=== PATIENT | male | born 1970 | race African-American/Black ===

== ENCOUNTER 2022-02-09 23:38 | Inpatient (IN) | payer BC ==
[~2022-02-09] VITALS: Ht 188 cm; Wt 81.6 kg
[2022-02-09] MEDS ORDERED: PROPOFOL 100 ML ONE (23:43)
[2022-02-09] MEDS ORDERED: LORAZEPAM INJ 2 MG/ML VIAL ONE (23:51)
[2022-02-09] MEDS ORDERED: diphenhydrAMINE HCL 50 MG/ML VIAL ONE (23:51)
[2022-02-09] MEDS ORDERED: methylPREDNISolone SOD SUCC 125 MG/2ML VIAL ONE (23:54)
[2022-02-10] VITALS (30 sets, daily range): BP systolic 90–170; BP diastolic 62–135
[2022-02-10] MEDS ORDERED: methylPREDNISolone SOD SUCC 125 MG/2ML VIAL IV ONE
[2022-02-10] MEDS ORDERED: ROCURONIUM BROMIDE 100 MG/10 ML VIAL IV ONE
[2022-02-10] MEDS ORDERED: IV NS 0.9% 500 ML BAG IV ONE
[2022-02-10] MEDS ORDERED: PIPERACILLIN /TAZOBACTAM 3.375 G in IV D5W 50 ML IV ONE ×2
[2022-02-10] MEDS ORDERED: VANCOMYCIN 1 GM in IV D5W 250 ML IV ONE ×2
[2022-02-10] MEDS ORDERED: VANCOMYCIN 1 GM VIAL ONE (00:07)
[2022-02-10] MEDS ORDERED: PIPERACILLIN /TAZOBACTAM 3.375 G VIAL IV ONE ×2 (00:07→06:20)
[2022-02-10 00:08] LABS: BASOPHILS # (AUTO) 0.1 K/uL (0.0-0.2); BASOPHILS % (AUTO) 0.5 % (0.0-2.0); EOSINOPHILS % (AUTO) 0.7 % (0.0-6.0); HEMATOCRIT 43 % (39-51); HEMOGLOBIN 13.7 g/dL (13.5-17.5); LYMPHOCYTES % (AUTO) 15.5 % (20.0-44.0); MEAN CORPUSCULAR HGB CONC 32 g/dl (31.0-36.0); MEAN CORPUSCULAR VOLUME 91 fL (80-96); MONOCYTES # (AUTO) 0.5 K/uL (0.1-1.30); MONOCYTES % (AUTO) 3.9 % (2.0-12.0); NEUTROPHILS # (AUTO) 10.1 K/uL (1.8-8.9); NEUTROPHILS % (AUTO) 79.4 % (43.0-81.0); PLATELET COUNT (AUTO) 246 K/uL (150-450); RED BLOOD CELL COUNT(AUTO) 4.69 MIL/uL (4.5-6.0); WHITE BLOOD COUNT (AUTO) 12.7 K/uL (4.3-11.0)
[2022-02-10 00:30] LABS: CALCIUM, SERUM 8.6 mg/dL (8.5-10.1); CARBON DIOXIDE 28 mmol/L (21-32); CHLORIDE 101 mmol/L (98-107); GLUCOSE 248 mg/dL (74-106); POTASSIUM 4.3 mmol/L (3.5-5.1); SODIUM SERUM 139 mmol/L (136-145); UREA NITROGEN, BLOOD 29 mg/dL (7-18)
[2022-02-10 00:44] LABS: ALANINE AMINOTRANSFERASE 68 U/L (12-78); ALBUMIN 4.2 g/dL (3.4-5.0); ALKALINE PHOSPHATASE 63 U/L (46-116); ASPARTATE AMINOTRANSFERASE 74 U/L (15-37); BILIRUBIN,DIRECT 0.1 mg/dL (0.0-0.2); BILIRUBIN,TOTAL 0.5 mg/dL (0.2-1.0); TOTAL PROTEIN, SERUM 7.5 g/dL (6.4-8.2)
[2022-02-10] MEDS ORDERED: FLUO10TA PO (01:26)
[2022-02-10] MEDS ORDERED: LISI10TA29 PO (01:26)
[2022-02-10] MEDS ORDERED: BUPR-54 PO (01:26)
[2022-02-10] MEDS ORDERED: ANAS1TAB50 PO (01:26)
[2022-02-10] MEDS ORDERED: PROPOFOL 100 ML ONE (01:29)
[2022-02-10 02:00] LABS: BILIRUBIN,URINE NEGATIVE (NEGATIVE); COLOR,URINE YELLOW (YELLOW); LEUKOCYTE ESTERASE ,URINE NEGATIVE (NEGATIVE); NITRITE, URINE NEGATIVE (NEGATIVE); PROTEIN,URINE 100 mg/dl (NEGATIVE); UGLUCOSE 250 MG/DL mg/dL (NEGATIVE); UROBILINOGEN,URINE 0.2 EU/dL (0.2)
[2022-02-10 02:03] LABS: ABG BASE EXCESS -1.9 mmol/L; ABG PCO2 58.3 mmHg (35.0-45.0); ABG PH 7.269 (7.350-7.450); ABG PO2 59.7 mmHg (75.0-100.0); COHb 0.4 % (0.5-1.5); MetHb 0.1 % (0.0-1.5); O2Hb 85.5 % (94.0-97.0); PEEP,BG 5 cm H2O; SITE, ABG Left Radial; VENT MODE, BG AC 22 500 100% +5; VT, ABG 500 mL
[2022-02-10] MEDS ORDERED: SODIUM BICARBONATE SYR 50 MEQ/50 ML DISP.SYRIN ONE (02:10)
[2022-02-10 02:23] LABS: BACTERIA,URINE Few /HPF (None Seen); SQUAMOUS EPITHELIAL CELL,UR Moderate /HPF (None Seen)
[2022-02-10] MEDS ORDERED: SODIUM BICARBONATE SYR 50 MEQ/50 ML DISP.SYRIN IV ONE ×2 (02:30)
[2022-02-10] MEDS ORDERED: ACETAMINOPHEN 650 MG/SUPP.RECT RC PRN (03:30)
[2022-02-10] MEDS ORDERED: Z GUARD REMEDY 4 OZ OINT TP PRN (03:30)
[2022-02-10] MEDS ORDERED: ONDANSETRON HCL/PF 4 MG/2 ML VIAL IVP PRN (03:30)
[2022-02-10] MEDS: IV D5/0.45 NACL 1,000 ML IV PRN ×2 (03:56→14:46)
[2022-02-10] MEDS: PROPOFOL 100 ML IV PRN ×8 (03:58→23:46)
[2022-02-10 05:03] LABS: BASOPHILS % (AUTO) 0.2 % (0.0-2.0); EOSINOPHILS % (AUTO) 0.1 % (0.0-6.0); HEMATOCRIT 42 % (39-51); HEMOGLOBIN 14.2 g/dL (13.5-17.5); LYMPHOCYTES # (AUTO) 0.3 K/uL (0.8-4.8); LYMPHOCYTES % (AUTO) 6.1 % (20.0-44.0); MEAN CORPUSCULAR HGB CONC 34 g/dl (31.0-36.0); MEAN CORPUSCULAR VOLUME 89 fL (80-96); MONOCYTES # (AUTO) 0.2 K/uL (0.1-1.30); MONOCYTES % (AUTO) 4.1 % (2.0-12.0); NEUTROPHILS % (AUTO) 89.5 % (43.0-81.0); PLATELET COUNT (AUTO) 191 K/uL (150-450); RED BLOOD CELL COUNT(AUTO) 4.75 MIL/uL (4.5-6.0); WHITE BLOOD COUNT (AUTO) 5.6 K/uL (4.3-11.0)
[2022-02-10 05:17] LABS: CALCIUM, SERUM 8.4 mg/dL (8.5-10.1); CREATININE 1.5 mg/dL (0.6-1.3)
[2022-02-10 05:31] LABS: ALBUMIN 3.6 g/dL (3.4-5.0); BILIRUBIN,TOTAL 0.7 mg/dL (0.2-1.0); MAGNESIUM 2.3 mg/dL (1.8-2.4); TOTAL PROTEIN, SERUM 6.7 g/dL (6.4-8.2)
[2022-02-10] MEDS ORDERED: ZOSYN IVPB 3.375 G in IV D5W 50ml IV ONE (06:00)
[2022-02-10 08:01] LABS: ABG BASE EXCESS 0.8 mmol/L; ABG OXYGEN SATURATION 98.5 % (92.0-98.5); ABG PCO2 45.6 mmHg (35.0-45.0); ABG PO2 151.5 mmHg (75.0-100.0); AaDO2 515.9 mmHg; COHb 0.8 % (0.5-1.5); MetHb 0.3 % (0.0-1.5); O2Hb 97.4 % (94.0-97.0); PEEP,BG 5 cm H2O; SITE, ABG Left Radial; VENT MODE, BG AC 26 550 100% +5; VT, ABG 550 mL
[2022-02-10] MEDS: PANTOPRAZOLE 40 MG VIAL IV SCH (08:37)
[2022-02-10] MEDS: HEPARIN SODIUM, PORCINE 5000 UNITS/1 ML VIAL SQ SCH ×2 (08:41→21:37)
[2022-02-10 08:56] LABS: ABG BASE EXCESS -0.8 mmol/L; ABG OXYGEN SATURATION 93.1 % (92.0-98.5); ABG PCO2 39.5 mmHg (35.0-45.0); ABG PH 7.399 (7.350-7.450); ABG PO2 68.2 mmHg (75.0-100.0); AaDO2 243.9 mmHg; COHb 0.9 % (0.5-1.5); MetHb 0.3 % (0.0-1.5); SITE, ABG Right Radial; VENT MODE, BG AC 26 550 50% +5
[2022-02-10] MEDS ORDERED: ETOMIDATE 2 MG/ML VIAL IV ONE ×2 (09:04)
[2022-02-10] MEDS: VANCOMYCIN 1 GM in IV D5W 250ml IV SCH ×2 (12:44→23:48)
[2022-02-10] MEDS: IV NS 0.9% 250 ML IV PRN (13:01)
[2022-02-10] MEDS: PIPERACILLIN /TAZOBACTAM 3.375 G in IV D5W 100 ML IV SCH ×2 (14:30→22:09)
[2022-02-11] VITALS (48 sets, daily range): BP systolic 99–198; BP diastolic 39–92
[2022-02-11] MEDS: PROPOFOL 100 ML IV PRN ×10 (03:19→23:30)
[2022-02-11] MEDS: PRECEDEX 400 MCG/100 ML BOTTLE 100 ML IV PRN (03:32)
[2022-02-11] MEDS: hydrALAZINE HCL IV 20 MG VIAL IV PRN ×2 (03:34→20:34)
[2022-02-11 04:46] LABS: BASOPHILS % (AUTO) 0.2 % (0.0-2.0); EOSINOPHILS % (AUTO) 0.2 % (0.0-6.0); HEMATOCRIT 42 % (39-51); HEMOGLOBIN 13.7 g/dL (13.5-17.5); LYMPHOCYTES % (AUTO) 9.8 % (20.0-44.0); MEAN CORPUSCULAR HGB CONC 33 g/dl (31.0-36.0); MEAN CORPUSCULAR VOLUME 92 fL (80-96); MONOCYTES # (AUTO) 0.7 K/uL (0.1-1.30); MONOCYTES % (AUTO) 6.7 % (2.0-12.0); NEUTROPHILS # (AUTO) 8.3 K/uL (1.8-8.9); NEUTROPHILS % (AUTO) 83.1 % (43.0-81.0); PLATELET COUNT (AUTO) 156 K/uL (150-450); RED BLOOD CELL COUNT(AUTO) 4.55 MIL/uL (4.5-6.0)
[2022-02-11 05:04] LABS: CALCIUM, SERUM 8.5 mg/dL (8.5-10.1); CREATININE 1.4 mg/dL (0.6-1.3); MAGNESIUM 2.5 mg/dL (1.8-2.4); PHOSPHORUS 2.7 mg/dL (2.5-4.9); POTASSIUM 4.2 mmol/L (3.5-5.1)
[2022-02-11] MEDS: PIPERACILLIN /TAZOBACTAM 3.375 G in IV D5W 100 ML IV SCH ×3 (06:19→23:30)
[2022-02-11] MEDS: IV D5/0.45 NACL 1,000 ML IV PRN ×2 (06:39→18:35)
[2022-02-11] MEDS: PANTOPRAZOLE 40 MG VIAL IV SCH (08:19)
[2022-02-11] MEDS: HEPARIN SODIUM, PORCINE 5000 UNITS/1 ML VIAL SQ SCH ×2 (08:19→20:43)
[2022-02-11] MEDS ORDERED: MORPHINE SULFATE INJ 10 MG/ML DISP.SYRIN IV PRN (09:00)
[2022-02-11] MEDS ORDERED: MORPHINE SULFATE INJ 4 MG/ML DISP.SYRIN IV ONE (09:36)
[2022-02-11] MEDS: VANCOMYCIN 1 GM in IV D5W 250ml IV SCH (11:46)
[2022-02-11] MEDS: VANCOMYCIN 1.25 GM in IV D5W 250 ML IV SCH (20:41)
[2022-02-11] MEDS: LORAZEPAM INJ 2 MG/ML VIAL IV PRN (21:19)
[2022-02-12] VITALS (48 sets, daily range): BP systolic 130–185; BP diastolic 66–108
[2022-02-12] MEDS: PROPOFOL 100 ML IV PRN ×11 (01:01→23:26)
[2022-02-12] MEDS: LORAZEPAM INJ 2 MG/ML VIAL IV PRN (04:05)
[2022-02-12 04:15] LABS: BASOPHILS % (AUTO) 0.3 % (0.0-2.0); EOSINOPHILS % (AUTO) 0.2 % (0.0-6.0); HEMATOCRIT 40 % (39-51); HEMOGLOBIN 13.5 g/dL (13.5-17.5); LYMPHOCYTES # (AUTO) 0.8 K/uL (0.8-4.8); LYMPHOCYTES % (AUTO) 8.8 % (20.0-44.0); MEAN CORPUSCULAR HGB CONC 34 g/dl (31.0-36.0); MEAN CORPUSCULAR VOLUME 89 fL (80-96); MONOCYTES # (AUTO) 0.7 K/uL (0.1-1.30); MONOCYTES % (AUTO) 7.7 % (2.0-12.0); PLATELET COUNT (AUTO) 194 K/uL (150-450); RED BLOOD CELL COUNT(AUTO) 4.51 MIL/uL (4.5-6.0); WHITE BLOOD COUNT (AUTO) 9.6 K/uL (4.3-11.0)
[2022-02-12 04:37] LABS: ALBUMIN 2.8 g/dL (3.4-5.0); BILIRUBIN,TOTAL 0.7 mg/dL (0.2-1.0); CALCIUM, SERUM 8.3 mg/dL (8.5-10.1); CREATININE 1.3 mg/dL (0.6-1.3); MAGNESIUM 2.1 mg/dL (1.8-2.4); PHOSPHORUS 1.9 mg/dL (2.5-4.9); POTASSIUM 3.4 mmol/L (3.5-5.1); TOTAL PROTEIN, SERUM 6.6 g/dL (6.4-8.2)
[2022-02-12] MEDS: PIPERACILLIN /TAZOBACTAM 3.375 G in IV D5W 100 ML IV SCH ×3 (06:22→23:07)
[2022-02-12] MEDS: IV NS 0.9% 250 ML IV PRN (06:22)
[2022-02-12] MEDS: VANCOMYCIN 1.25 GM in IV D5W 250 ML IV SCH ×2 (08:03→19:46)
[2022-02-12] MEDS ORDERED: JEVITY 1.2 CAL 1,000 ML BOTTLE GT SCH (09:00)
[2022-02-12] MEDS: PANTOPRAZOLE 40 MG VIAL IV SCH (09:06)
[2022-02-12] MEDS: HEPARIN SODIUM, PORCINE 5000 UNITS/1 ML VIAL SQ SCH ×2 (09:13→20:27)
[2022-02-12] MEDS: IV D5/0.45 NACL 1,000 ML IV PRN ×2 (09:30→23:32)
[2022-02-12] MEDS ORDERED: POTASSIUM CHLORIDE 20 MEQ POWDER PACKET GT SCH (10:00)
[2022-02-12] MEDS ORDERED: NEUTRA PHOS 1 POWD.PACKET GT ONE (11:30)
[2022-02-12] MEDS ORDERED: LORAZEPAM INJ 2 MG/ML VIAL IV PRN (16:48)
[2022-02-12] MEDS: PRECEDEX 400 MCG/100 ML BOTTLE 100 ML IV PRN ×2 (16:51→22:55)
[2022-02-13] VITALS (20 sets, daily range): BP systolic 123–185; BP diastolic 68–101
[2022-02-13] MEDS: hydrALAZINE HCL IV 20 MG VIAL IV PRN ×2 (00:09→05:26)
[2022-02-13] MEDS: PROPOFOL 100 ML IV PRN ×2 (01:56→06:09)
[2022-02-13] MEDS: PRECEDEX 400 MCG/100 ML BOTTLE 100 ML IV PRN (04:15)
[2022-02-13 04:55] LABS: BASOPHILS % (AUTO) 0.4 % (0.0-2.0); EOSINOPHILS % (AUTO) 1.7 % (0.0-6.0); HEMATOCRIT 37 % (39-51); HEMOGLOBIN 12.4 g/dL (13.5-17.5); LYMPHOCYTES # (AUTO) 0.9 K/uL (0.8-4.8); LYMPHOCYTES % (AUTO) 10.1 % (20.0-44.0); MEAN CORPUSCULAR HGB CONC 34 g/dl (31.0-36.0); MEAN CORPUSCULAR VOLUME 88 fL (80-96); MONOCYTES # (AUTO) 0.7 K/uL (0.1-1.30); MONOCYTES % (AUTO) 8.1 % (2.0-12.0); NEUTROPHILS # (AUTO) 6.8 K/uL (1.8-8.9); NEUTROPHILS % (AUTO) 79.7 % (43.0-81.0); PLATELET COUNT (AUTO) 197 K/uL (150-450); RED BLOOD CELL COUNT(AUTO) 4.17 MIL/uL (4.5-6.0); WHITE BLOOD COUNT (AUTO) 8.6 K/uL (4.3-11.0)
[2022-02-13 05:08] LABS: ALBUMIN 2.5 g/dL (3.4-5.0); BILIRUBIN,TOTAL 0.6 mg/dL (0.2-1.0); CALCIUM, SERUM 8.4 mg/dL (8.5-10.1); MAGNESIUM 1.8 mg/dL (1.8-2.4); PHOSPHORUS 2.6 mg/dL (2.5-4.9); POTASSIUM 3.3 mmol/L (3.5-5.1); TOTAL PROTEIN, SERUM 6.5 g/dL (6.4-8.2)
[2022-02-13] MEDS: PIPERACILLIN /TAZOBACTAM 3.375 G in IV D5W 100 ML IV SCH (07:10)
[2022-02-13] MEDS: VANCOMYCIN 1.25 GM in IV D5W 250 ML IV SCH (08:11)
[2022-02-13] MEDS ORDERED: FENTANYL CITRAT IV 2,500 MCG in IV NS 0.9% 200 ML IV PRN (09:00)
[2022-02-13] MEDS ORDERED: MIDAZOLAM HCL 100 MG in IV NS 0.9% 80 ML IV PRN (09:00)
[2022-02-13] MEDS ORDERED: PANTOPRAZOLE 40 MG/PACK PACK GT SCH (09:00)
[2022-02-13] MEDS: HEPARIN SODIUM, PORCINE 5000 UNITS/1 ML VIAL SQ SCH (09:17)
[2022-02-13] MEDS ORDERED: POTASSIUM CHLORIDE 20 MEQ POWDER PACKET GT SCH (10:00)
== END 2022-02-13 10:26 | disposition short-term general hospital (02) | DRG 163 ==
LOC: ER 23:39 → ICU 02-10 02:24
PROVIDERS: ADMIT Nurse Practitioner Family
PROC: 5A1945Z Respiratory Ventilation, 24-96 Consecutive Hours (ICD-10-PCS; principal; 2022-02-10)
PROC: 0BH18EZ Insertion of Endotracheal Airway into Trachea, Via Natural or Artificial Opening Endoscopic (ICD-10-PCS; 2022-02-10)
PROC: 0BJ08ZZ Inspection of Tracheobronchial Tree, Via Natural or Artificial Opening Endoscopic (ICD-10-PCS; 2022-02-10)
PROC: 0BCF8ZZ Extirpation of Matter from Right Lower Lung Lobe, Via Natural or Artificial Opening Endoscopic (ICD-10-PCS; 2022-02-11)
PROC: 05HF33Z Insertion of Infusion Device into Left Cephalic Vein, Percutaneous Approach (ICD-10-PCS; 2022-02-11)
DX: T17.828A Food in other parts of respiratory tract causing other injury, initial encounter (principal); A41.9 Sepsis, unspecified organism; I21.A1 Myocardial infarction type 2; I46.9 Cardiac arrest, cause unspecified; J96.01 Acute respiratory failure with hypoxia; J69.0 Pneumonitis due to inhalation of food and vomit; R65.20 Severe sepsis without septic shock; G93.40 Encephalopathy, unspecified; N17.9 Acute kidney failure, unspecified; J98.11 Atelectasis; E87.2 Acidosis; Z20.822 Contact with and (suspected) exposure to COVID-19; I10 Essential (primary) hypertension; Z79.899 Other long term (current) drug therapy; Z79.811 Long term (current) use of aromatase inhibitors; F41.9 Anxiety disorder, unspecified; E87.6 Hypokalemia; G40.909 Epilepsy, unspecified, not intractable, without status epilepticus; G47.00 Insomnia, unspecified; X58.XXXA Exposure to other specified factors, initial encounter; Y92.009 Unspecified place in unspecified non-institutional (private) residence as the place of occurrence of the external cause; I49.9 Cardiac arrhythmia, unspecified
CPT/HCPCS: 31623; 31720; 36410; 36415; 36600; 70450-TC; 71045-TC; 76770-TC; 80048-TC; 80053-TC; 80076-TC; 80202-TC; 81001; 82803-TC; 83605-TC; 83735-TC; 83880; 84100-TC; 84478-TC; 84484-TC; 85025-TC; 85730-TC; 87040-TC; 87086-TC; 93307-TC; 94002-TC; 94003-TC; 94799-TC; 95819-TC; 99082-TC; C9113; C9803; G0378; G0480; J0360; J1200; J1644; J2060; J2250; J2270; J2543; J2930; J3010; J3370; J3490; J7030; J7040; J7042; J7050; J7060